=== PATIENT | male | born 1985 | race Caucasian/White ===

== ENCOUNTER 2024-12-21 17:27 | Emergency (ER) | payer MEDICAID, SELFPAY ==
[2024-12-21 17:36] VITALS: BP 132/79; PULSE 110; RESP 20; TEMP 36.5; O2SAT 95
--- NOTE | 2024-12-21 19:22 | W.ED.GENAD ---
Discharge Plan Discharge Details Chief Complaint: PsychEval Clinical Impression: Substance use disorder, Schizophrenia Primary Care Provider: None,None ED Provider: Tosin Crooks Home Meds and New Rx's Prescriptions: No Action No Known Home Meds HPI General Date/Time Provider Initiated Documentation: 12/21/24 17:47. HPI Narrative: Alex is a 39 year old male who presents to the emergency department today for help with accessing rehab and or establishing care/counseling for schizophrenia. 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 He came to [facility] because he was told that recovery coaches would be available. He reports he has a history of schizophrenia, talks to himself and has some anger towards God and other people, but denies hallucinations, SI, HI, or self-harm behaviors. He does have a history of heavy meth use, last used 1 week ago. Reports he has overall been feeling well, but has had on and off headaches that respond well to caffeine for the last 2 days, and in the last 24 hours developed congestion and mild occasional cough. He also reports that his feet were cold and uncomfortable while he was walking, because he is concerned his boots have holes in them and it is cold outside. Denies fever/chills, difficulty swallowing, ear pain, chest pain, difficulty breathing, nausea/vomiting, abdominal pain, change in bowel or bladder function. Does have soft stools to 3 times a day, no blood in stool. Denies significant past medical history. Physical exam reassuring. Alex is an alert and oriented, easily conversational. Easy work of breathing, lung sounds clear bilaterally. Normal heart sounds. Abdomen soft, nondistended, nontender palpation. Moist mucous membranes. Clear voice. Full painless range of motion of neck. 5/5 muscle strength to upper and lower extremities. No lesions or sores noted to feet, sensation grossly intact. Normal gait. Patient medically cleared. As he does have some mild viral symptoms, COVID/flu obtained. Baseline labs drawn in anticipation of inpatient admission. I independently interpreted the following tests: CBC, BMP, TSH all reassuring. Mildly elevated creatinine of 1.5, no previous available for comparison. UA reassuring, only trace ketones, not consistent with UTI. ASA, APAP, EtOH all negative. UDS positive only for THC. While in the emergency department, Alex was evaluated by [facility] crisis counselor who recommends inpatient placement for management of schizophrenia and substance use. Patient is voluntary. Handoff report given to getachew Smart attending Related Data Home Medications ?Medication ?Instructions ?Recorded ?Confirmed Unknown [No Known Home Meds] 12/21/24 12/21/24 Allergies Allergy/AdvReac Type Severity Reaction Status Date / Time No Known Allergies Allergy Unverified 12/21/24 17:41 General Stated Complaint: PsychEval NEY: 2 Review of Systems Narrative: See HPI Exam Const General: cooperative, healthy appearing, comfortable, no acute distress, well developed and well groomed Nutritional Appearance: average body habitus Orientation: alert and oriented x3 HENMT Head: normal to inspection Ears: hearing grossly normal bilaterally General nose exam: external nose normal Face and sinus: normal facial exam Mouth: oral mucosae normal and oropharynx normal Neck Neck: normal visual inspection and full ROM Resp Effort & Inspection: normal respiratory effort and able to speak in complete sentences Auscultation: clear to auscultation bilaterally Cardio Rate: regular rate Rhythm: regular rhythm GI Inspection: normal to inspection and non-distended Palpation: soft, not firm, no guarding, not rigid and nontender Skin General skin exam: no rashes or lesions noted Neuro General: patient alert, gait normal, tone normal and moves all extremities Cognition: normal cognition Speech: speech normal Motor: muscle tone normal throughout and strength 5/5 throughout Sensory Exam: no sensory deficits noted Extrem General: normal to inspection, full ROM, capillary refill normal and no pedal edema Psych Appearance: grossly normal Mental Status: mental status grossly normal Speech and Movement: speech and movement normal Mood: congruent mood Affect: normal affect Attitude: cooperative Thought Process: normal Thought Content: normal Course Vital Signs Vital signs: Vital Signs Temperature 36.5 C 12/21/24 17:36 Pulse 110 H 12/21/24 17:36 Respiratory Rate 20 12/21/24 17:36 Blood Pressure 132/79 12/21/24 17:36 Pulse Oximetry 95 12/21/24 17:36 Temperature 36.5 C 12/21/24 17:36 Pulse 110 H 12/21/24 17:36 Respiratory Rate 20 12/21/24 17:36 Blood Pressure 132/79 12/21/24 17:36 Blood Pressure Position Sitting 12/21/24 17:36 Pulse Oximetry 95 12/21/24 17:36 Oxygen Delivery Method Room Air 12/21/24 17:36 Oxygen Flow Rate 0 12/21/24 17:36 Medical Decision Making Quality:SDOH Health Related Social Needs: No Data to Display PFSH All Active Problems (Updated 12/21/24 @ 22:00 by Tosin Cruz) Schizophrenia (Chronic) Substance use disorder (Acute) Social History Smoking/Tobacco Use Status: Current-Occasional Smoking risk assessment performed?: Yes Drug use: Occasionally Substance use type: amphetamines Details: 1-2 a week. PAWSS Have you Been Recently Intoxicated or Drunk Within the Last 30 days?: No Have you Ever Experienced Previous Episodes of Alcohol Withdrawal?: No Have you ever Experienced Withdrawal Seizures?: No Have you ever Experienced Delirium Tremens(DT)s?: No Have you ever undergone Alcohol Rehabilitation Treatment (i.e, inpt ot outpatient treatment programs)?: No Have you ever Experienced Blackouts?: No Have you ever Combined Alcohol with other Downers within the last 90 days?: No Have you ever Combined Alcohol with any other Substance of Abuse during the last 90 days?: No Positive Blood Alcohol level on Presentation? [PCS.BAL]: No Evidence of Increased Autonomic Activity (i.e. HR>120, tremor, sweating, agitation, nausea)?: No Result: 0
[2024-12-21 20:46] LABS: Abs Immature Grans 0.01 10^3/uL (0.0-0.06); Absolute Basophil Count 0.09 10^3/uL (0.0-0.2); Absolute Eosinophil Count 0.58 10^3/uL (0.0-0.7); Absolute Lymphocyte Count 3.35 10^3/uL (1.2-3.4); Absolute Neutrophil Count 4.05 10^3/uL (1.2-6.7); Eosinophils % 6.6 %; HCT 40.7 % (40.0-50.0); HGB 13.9 g/dL (13.5-17.5); Immature Grans % 0.1 %; Lymphocytes % 38.2 %; MCH 30.5 pg (27.0-33.0); MCHC 34.2 % (32.0-36.0); MCV 89 fL (80-95); MPV 11.2 fL (8.0-11.0); Neutrophils % 46.1 %; Platelet Count 218 10^3/uL (130-400); RBC 4.56 10^6/uL (4.36-5.78); RDW 12.4 % (11.8-14.1); RDW-SD 40.9 fL; WBC 8.78 10^3/uL (4.4-10.8)
[2024-12-21 20:58] LABS: Bilirubin Negative (Negative); Blood Negative (Negative); Clarity Clear (Clear); Glucose Negative (Negative); Ketones Trace mg/dL (Negative); Leukocyte Esterase Negative (Negative); Nitrite Negative (Negative); Specific Gravity 1.025 (1.005-1.025); Urobilinogen 0.2 mg/dL (Up to 0.2)
[2024-12-21 21:05] LABS: Salicylate < 2.8 mg/dL (<2.8)
[2024-12-21 21:06] LABS: *AMPHETAMINES SCREEN URINE Negative (Negative); *BARBITURATES SCREEN URINE Negative (Negative); *BENZODIAZEPINES SCREEN URINE Negative (Negative); Cannabinoids THC Positive (Negative); Cocaine Screen,Urine Negative (Negative); METHADONE URINE SCREEN Negative (Negative); OPIATES URINE SCREEN Negative (Negative)
[2024-12-21 21:07] LABS: Acetaminophen < 2 ug/mL (10-30)
[2024-12-21 21:07] LABS: Tricyclic Antidepressants Negative (Negative)
[2024-12-21 21:08] LABS: Anion Gap 7.6 mmol/L (3-11); BUN 18 mg/dL (7-18); CO2 30.4 mmol/L (21.0-32.0); CREATININE 1.5 mg/dL (0.70-1.30); Calcium 8.9 mg/dL (8.5-10.1); Chloride 106 mmol/L (98-107); Estimated GFR 59.98 (mL/min/1.73m2); Glucose 103 mg/dL (74-106); Sodium 144 mmol/L (136-145); TSH (W/Ref FT4) 0.76 uIU/mL (0.36-3.74)
[2024-12-21 21:09] LABS: ETHANOL BLOOD < 3.0 mg/dL (<10)
--- NOTE | 2024-12-21 21:28 | PDOC.MHCN ---
Date of service: 12/21/24 Time of Service: 20:08 Mental Health Emergency Note Release [facility] release signed:: Yes Reason for Visit Alex presents to [facility] to seek substance use treatment. Alex was seen early today by the [facility] In the last 2 weeks has the pt presented for ES prior to today?: Yes, presented at ED at another facility Client Information Client is: New Well Housed: No,status: Homeless Stable housing Non Suicidal Self Injury Current: No History: No Safety Risk/Harm to Self or Others Current Ideation to Harm Self or Others: No Risk: Does risk to harm exist?: No Risk: N/A Duty to warn indicated: No Asssessment/Mental Status Appearance: Unremarkable Attitude: Cooperative Behavior: Unremarkable Speech: Normal Affect: Cogruent with mood Mood: Stressed and Anxious Thought process: Goal directed Hallucinations: No evidence Delusions: No evidence Attention: Unremarkable Perception: Not impaired Orientation: Fully orientated Memory: Intact Insight: Fair Judgement: Fair Neurovegetative Symptoms Sleep: No change Appetitie: No change Interests: No change Energy: No change Libido: Not applicable Substance Use: Do you use nicotine?: Yes Have you used substances in the last 7 days?: yes, Alex reports usage of Methamphetamines but he is trying to become sober. Additional Issues: Assaultive/Threatening Behavior: No Medical Concerns: No Client engaged in active self harm w/weapon: No Threatening to run away: No Child reported abuse/neglect: No Voluntarily presenting for services: Yes Domestic violence is a concern: No Extreme Psychosis or extreme behavior is present: No Impression Alex is a [age] year old, single, white male who is originally from [place] but moved to [place] about one year ago. Alex has been staying in the [facility] area but left in hopes to become sober and get connected with mental health and recovery services. Alex reports he rode his bike from [place] to [place] but once getting to [facility] he donated his bike. 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 Alex reports that he is seeking recovery, he has been using methamphetamines and has a prior history of heroine and crack use. Alex reports he also has a history of schizophrenia but he stopped taking his medications due to his doctor switching his prescription with a sleeping med, per his report. Alex reports he is currently having issues with [employer] as he is trying to get a voucher. He is also having issues with Medicaid. Alex reports this is his 4th time presenting to an ED since October 20 due to different reasons. Alex reports he is not currently set up with services in [place] but would like to get connected in whatever area he lives in after treatment. Alex denies SI, HI, and NSSI but reports he would like inpatient treatment for both his mental health and substance usage. Alex will remain at [facility] on a voluntary basis. Plan/Disposition Recommended Disposition: Hospitalization (Referrals will be sent on 12/21.) facilities contacted. Plan: Alex will remain at [facility] until voluntary inpatient treatment is secured Person reported agreement to plan: Yes Reports/communication Outcome discussed with: ED/Personnel
[2024-12-22 08:32] VITALS: BP 130/73; PULSE 57; RESP 20; TEMP 36.2; O2SAT 98
--- NOTE | 2024-12-22 11:34 | W.EDPROG ---
Date of service: 12/22/24 Time of Service: 11:35 Medical Decision Making Patient has been seen and evaluated by the mental health advocates. They feel that he is safe for discharge. They recommended that the patient go to [facility] for rehab. They will be transporting the patient here. Patient will be discharged home at this time to continue with that plan. We have extensively reviewed the treatment plan and discharge instructions with the patient. We have addressed all patient concerns at this time. The patient was made aware of what symptoms to monitor for that would warrant a return to the emergency department. Discussed the plan with the patient, they demonstrate verbal understanding and agreement with our assessment and plan at this time. The documentation in this chart was dictated using [facility] dictation software. Please excuse any dictation errors. Quality:SDOH Health Related Social Needs: No Data to Display Discharge Plan Disposition Patient Disposition: Home Condition: Good Discharge Details Chief Complaint: PsychEval Clinical Impression: Substance use disorder, Schizophrenia Primary Care Provider: None,None ED Provider: Aditya Núñez Home Meds and New Rx's Prescriptions: No Action No Known Home Meds Discharge Instructions Additional Instructions: Please continue with the plan set forth by your mental health advocates. Please go directly to [facility]. If you have any thoughts of self-harm or harming others, please return immediately for reassessment or reach out to your mental health advocates. If you notice any worsening of your symptoms, or any new symptoms such as vomiting, diarrhea, fever, chills, shortness of breath, chest pain, numbness, weakness, or fainting , please return immediately to the emergency department for reevaluation. Please follow up with your primary care provider as soon as possible for reassessment and reevaluation. As always, it was a pleasure participating in your medical care today.
--- NOTE | 2024-12-22 11:40 | NUR.NOTE ---
Nursing Note: I spoke with Janett from the recovery center and she notified me that the patient has been accepted to [facility] for substance abuse concerns. She also said that her boss was going to drive him to the facility and would be here within the hour. Notified Dr. Núñez, discharge has been done, and we are currently awaiting the recovery coaches to pick the patient up to bring him to [facility]. There were concerns brought up by [facility] about the patient being a little too friendly towards her in an uncomfortable sexual manner. I did notify Janett of what was said to me by [facility] and she stated that she is aware and had met with him face to face this morning. With the information, she was going to give her boss the information allowing her the option to be the one who brings him or assign another customer care team coach to do so. She asked that we have him ready and stated that someone would be here soon to pick him up. Discharge is printed and given to the [facility] nurse.
--- NOTE | 2024-12-22 16:09 | PDOC.MHPN2 ---
Date of service: 12/22/24 Time of Service: 10:21 PHQ-9 Over the last 2 weeks, how often have you been bothered by any of the following problems? 1. Little interest or pleasure in doing things: not at all 2. Feeling down, depressed, or hopeless: not at all 3. Trouble falling or staying asleep, or sleeping too much: not at all 4. Feeling tired or having little energy: more than half the days 5. Poor appetite or overeating: more than half the days 6. Feeling bad about yourself - or that you are a failure or have let yourself and your family down: not at all 7. Trouble concentrating on things, such as reading the newspaper or watching television: nearly every day 8. Moving or speaking so slowly that other people could have noticed? - Or the opposite - being so fidgety or restless that you have been moving around a lot more than usual: not at all 9. Thoughts that you would be better off or of hurting yourself in some way: not at all Total score: 7 If you checked off any problems, how difficult have these problems made it for you to do your work, take care of things at home, or get along with other people?: somewhat difficult PHQ-9 Results: Negative Source: Developed by Drs. Rolo Rojas, Cecy Auguste, Bayron Johnson and colleagues, with an educational marva from [employer]. Suicide Severity Rate CSSRS Have you wished you were or wished you could go to sleep and not wake up?: No Have you actually had any thoughts of killing yourself?: No CSSRS2 Have you been thinking about how you might do this?: No Have you had these thoughts and had some intention of acting on them?: No Have you started to work out or worked out the details of how to kill yourself? Do you intend to carry out this plan?: No CSSRS3 Have you ever done anything, started to do anything or prepared to do anything to end your life?: No CSSRS4 Was this within the past three months?: No Screening Score Total Score: 0 Screening: Negative Mental Health Emergency Note Release [facility] release signed:: Yes Reason for Visit Mr Mccall is a 39 year old single male who is unhoused. This client presented to this clinician in the [facility] zone B. This client presented as friendly and cooperative. The client also presented as delusional by talking about countries moving around the world and having traveled all over the world without a passport. The client states that the world has all been made to look like [place]. 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 The client also stated that there people down in [place] who are thousands of feet underground and come up and drag others down with them. The client states that people are lacing ice (crystal Methamphetamines) with fentanyl in [place]. The client states he ate an omelet, toast and coffee for breakfast. The client denies SI, HI and NSSI. The client is seeking voluntary in patient treatment for help with his mental health and substance use recovery. In the last 2 weeks has the pt presented for ES prior to today?: No Client Information Client is: New Well Housed: No,status: Homeless Non Suicidal Self Injury Current: No History: No Safety Risk/Harm to Self or Others Current Ideation to Harm Self or Others: No Risk: Does risk to harm exist?: No Duty to warn indicated: No Asssessment/Mental Status Appearance: Unremarkable Attitude: Cooperative and Friendly Behavior: Unremarkable Speech: Normal Affect: Normal and Expansive Mood: Expansive and Happy Thought process: Loose associations Hallucinations: No Delusions: yes, Bizarre (See note regarding delusions. ) Attention: Unremarkable Perception: Not impaired Orientation: Fully orientated Memory: Intact Insight: Fair Judgement: Fair Neurovegetative Symptoms Sleep: Increase Appetitie: Increase Interests: No change Energy: No change Libido: Not applicable Substance Use: Drug Issues: Dependence (Crystal Methamphetamines ) Do you use nicotine?: No Have you used substances in the last 7 days?: yes, NA Additional Issues: Assaultive/Threatening Behavior: No Medical Concerns: No Client engaged in active self harm w/weapon: No Threatening to run away: No Child reported abuse/neglect: No Voluntarily presenting for services: Yes Domestic violence is a concern: No Extreme Psychosis or extreme behavior is present: Yes Impression Mr Mccall is a 39 year old single male who is unhoused. This client presented to this clinician in the [facility] zone B. This client presented as friendly and cooperative. The client also presented as delusional by talking about countries moving around the world and having traveled all over the world without a passport. The client states that the world has all been made to look like [place]. 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 The client also stated that there people down in [place] who are thousands of feet underground and come up and drag others down with them. The client states that people are lacing ice (crystal Methamphetamines) with fentanyl in [place]. The client states he ate an omelet, toast and coffee for breakfast. The client denies SI, HI and NSSI. The client is seeking voluntary in patient treatment for help with his mental health and substance use recovery.? Plan/Disposition Recommended Disposition: Hospitalization facilities contacted. Plan: Mr Mccall is a 39 year old single male who is unhoused. This client presented to this clinician in the [facility] zone B. This client presented as friendly and cooperative. The client also presented as delusional by talking about countries moving around the world and having traveled all over the world without a passport. The client states that the world has all been made to look like [place]. 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 The client also stated that there people down in [place] who are thousands of feet underground and come up and drag others down with them. The client states that people are lacing ice (crystal Methamphetamines) with fentanyl in [place]. The client states he ate an omelet, toast and coffee for breakfast. The client denies SI, HI and NSSI. The client is seeking voluntary in patient treatment for help with his mental health and substance use recovery.? Person reported agreement to plan: Yes Facilities contacted if Applicable [facility] Not accepted, (pending review) Other (pending review) [facility] Not accepted, (pending review) Other (pending review) [facility] Not accepted, (pending review) Other (pending review) [facility] Not accepted, (pending review) Other (pending review)[facility] Not accepted, (pending review) Other (pending review) [facility] Not accepted, (pending review) Other (pending review) Reports/communication Outcome discussed with: ED/Personnel
== END 2024-12-22 13:07 | disposition home or self-care (01) ==
PROVIDERS: Nurse Practitioner Family; Emergency Provider Student in an Organized Health Care Education/Training Program
DX: F20.9 Schizophrenia, unspecified (principal); F15.10 Other stimulant abuse, uncomplicated; F17.200 Nicotine dependence, unspecified, uncomplicated
CPT/HCPCS: 00123; 80048; 80307; 87426; 96127; 99285; 80320; 80329; 81003; 84443; 85025; 99284